=== PATIENT | male | born 1945 | race Caucasian/White ===

== ENCOUNTER → 2016-07-09 09:30 | Outpatient (CLI) | payer MEDICARE ==
[2014-12-26 12:52] VITALS: BMI 21.4
[~2016-07-09 09:30] MED LIST: ACETAMINOPHEN500 M1 PO; LEVAQUIN500 MG PO; MEDROL DOSE PACK4 MG PO
== END | disposition home or self-care (01) ==
LOC: D.RT 09:30
DX: R06.00 Dyspnea, unspecified (principal)